=== PATIENT | female | born 1960 | race Hispanic/Latino ===

== ENCOUNTER 2020-01-24 13:17 | Outpatient (CLI) | payer BC ==
[2020-01-24] MEDS ORDERED: LIDOCAINE (4%) 40 MG/ML TOPICAL SOLN 50 ML BOTTLE TP ONE (13:40)
== END 2020-01-24 13:18 | disposition home or self-care (01) ==
LOC: WOUND 13:17
PROVIDERS: ATTEND Surgery
DX: I87.312 Chronic venous hypertension (idiopathic) with ulcer of left lower extremity (principal); L97.822 Non-pressure chronic ulcer of other part of left lower leg with fat layer exposed; J45.909 Unspecified asthma, uncomplicated; K21.9 Gastro-esophageal reflux disease without esophagitis; G62.9 Polyneuropathy, unspecified; F32.9 Major depressive disorder, single episode, unspecified; F41.9 Anxiety disorder, unspecified
CPT/HCPCS: 11042; G0463; 29581; 99204

== ENCOUNTER 2020-01-28 13:54 | Outpatient (CLI) | payer BC | END 2020-01-28 13:55 | disposition home or self-care (01) | LOC: WOUND 13:54 | PROVIDERS: ATTEND Surgery | DX: I87.312 Chronic venous hypertension (idiopathic) with ulcer of left lower extremity (principal); L97.822 Non-pressure chronic ulcer of other part of left lower leg with fat layer exposed; J45.909 Unspecified asthma, uncomplicated; K21.9 Gastro-esophageal reflux disease without esophagitis; G62.9 Polyneuropathy, unspecified; F32.9 Major depressive disorder, single episode, unspecified; F41.9 Anxiety disorder, unspecified | CPT/HCPCS: 29581 ==

== ENCOUNTER 2020-02-05 13:38 | Outpatient (CLI) | payer BC | END 2020-02-05 13:39 | disposition home or self-care (01) | LOC: WOUND 13:38 | PROVIDERS: ATTEND Surgery | DX: I87.312 Chronic venous hypertension (idiopathic) with ulcer of left lower extremity (principal); L97.822 Non-pressure chronic ulcer of other part of left lower leg with fat layer exposed; J45.909 Unspecified asthma, uncomplicated; Z98.51 Tubal ligation status; Z96.653 Presence of artificial knee joint, bilateral | CPT/HCPCS: 29581 ==

== ENCOUNTER 2020-02-07 13:25 | Outpatient (CLI) | payer BC ==
[2020-02-07] MEDS ORDERED: LIDOCAINE (4%) 40 MG/ML TOPICAL SOLN 50 ML BOTTLE TP SCH (14:00)
== END 2020-02-07 13:26 | disposition home or self-care (01) ==
LOC: WOUND 13:25
PROVIDERS: ATTEND Surgery
DX: I87.312 Chronic venous hypertension (idiopathic) with ulcer of left lower extremity (principal); L97.822 Non-pressure chronic ulcer of other part of left lower leg with fat layer exposed; J45.909 Unspecified asthma, uncomplicated; Z96.653 Presence of artificial knee joint, bilateral; Z98.51 Tubal ligation status; Z98.84 Bariatric surgery status
CPT/HCPCS: 29581

== ENCOUNTER 2020-02-12 09:00 | Outpatient (CLI) | payer BC | END 2020-02-12 09:01 | disposition home or self-care (01) | LOC: WOUND 09:00 | PROVIDERS: ATTEND Surgery | DX: I87.312 Chronic venous hypertension (idiopathic) with ulcer of left lower extremity (principal); L97.822 Non-pressure chronic ulcer of other part of left lower leg with fat layer exposed; J45.909 Unspecified asthma, uncomplicated; Z96.653 Presence of artificial knee joint, bilateral; Z98.51 Tubal ligation status; Z98.84 Bariatric surgery status | CPT/HCPCS: 29581 ==

== ENCOUNTER 2020-02-14 13:50 | Outpatient (CLI) | payer BC ==
[2020-02-14] MEDS ORDERED: LIDOCAINE (4%) 40 MG/ML TOPICAL SOLN 50 ML BOTTLE TP ONE (14:00)
== END 2020-02-14 13:51 | disposition home or self-care (01) ==
LOC: WOUND 13:50
PROVIDERS: ATTEND Surgery
DX: I87.312 Chronic venous hypertension (idiopathic) with ulcer of left lower extremity (principal); L97.822 Non-pressure chronic ulcer of other part of left lower leg with fat layer exposed; J45.909 Unspecified asthma, uncomplicated; Z96.653 Presence of artificial knee joint, bilateral; Z98.51 Tubal ligation status; Z98.84 Bariatric surgery status
CPT/HCPCS: 29581

== ENCOUNTER → 2020-02-22 | Outpatient (CLI) | payer BC | END | disposition home or self-care (01) | LOC: WOUND 11:00 | PROVIDERS: ATTEND Surgery | DX: I87.312 Chronic venous hypertension (idiopathic) with ulcer of left lower extremity (principal); L97.821 Non-pressure chronic ulcer of other part of left lower leg limited to breakdown of skin; J45.909 Unspecified asthma, uncomplicated; Z96.653 Presence of artificial knee joint, bilateral; Z98.51 Tubal ligation status; Z98.84 Bariatric surgery status | CPT/HCPCS: 29581 ==

== ENCOUNTER 2020-02-26 13:46 | Outpatient (CLI) | payer BC | END 2020-02-26 13:47 | disposition home or self-care (01) | LOC: WOUND 13:46 | PROVIDERS: ATTEND Surgery | DX: I87.312 Chronic venous hypertension (idiopathic) with ulcer of left lower extremity (principal); L97.821 Non-pressure chronic ulcer of other part of left lower leg limited to breakdown of skin; J45.909 Unspecified asthma, uncomplicated; Z96.653 Presence of artificial knee joint, bilateral; Z98.51 Tubal ligation status; Z98.84 Bariatric surgery status | CPT/HCPCS: 29581 ==

== ENCOUNTER 2020-02-28 08:21 | Outpatient (CLI) | payer BC ==
[2020-02-28] MEDS ORDERED: LIDOCAINE (4%) 40 MG/ML TOPICAL SOLN 50 ML BOTTLE TP ONE (08:43)
== END 2020-02-28 08:22 | disposition home or self-care (01) ==
LOC: WOUND 08:21
PROVIDERS: ATTEND Surgery
DX: I87.312 Chronic venous hypertension (idiopathic) with ulcer of left lower extremity (principal); L97.821 Non-pressure chronic ulcer of other part of left lower leg limited to breakdown of skin; J45.909 Unspecified asthma, uncomplicated; Z96.653 Presence of artificial knee joint, bilateral; Z98.51 Tubal ligation status; Z98.84 Bariatric surgery status
CPT/HCPCS: 29581

== ENCOUNTER 2020-03-03 13:09 | Outpatient (CLI) | payer BC | END 2020-03-03 13:10 | disposition home or self-care (01) | LOC: WOUND 13:09 | PROVIDERS: ATTEND Surgery | DX: I87.312 Chronic venous hypertension (idiopathic) with ulcer of left lower extremity (principal); L97.821 Non-pressure chronic ulcer of other part of left lower leg limited to breakdown of skin; J45.909 Unspecified asthma, uncomplicated; Z96.653 Presence of artificial knee joint, bilateral; Z98.51 Tubal ligation status; Z98.84 Bariatric surgery status | CPT/HCPCS: 29581 ==

== ENCOUNTER 2020-03-06 09:13 | Outpatient (CLI) | payer BC ==
[2020-03-06] MEDS ORDERED: LIDOCAINE (4%) 40 MG/ML TOPICAL SOLN 50 ML BOTTLE TP ONE (09:15)
[2020-03-06] MEDS ORDERED: VITAMIN A & D OINT 56.7 GM TP SCH (10:00)
== END 2020-03-06 09:14 | disposition home or self-care (01) ==
LOC: WOUND 09:13
PROVIDERS: ATTEND Surgery
DX: I87.312 Chronic venous hypertension (idiopathic) with ulcer of left lower extremity (principal); L97.821 Non-pressure chronic ulcer of other part of left lower leg limited to breakdown of skin; J45.909 Unspecified asthma, uncomplicated; Z96.653 Presence of artificial knee joint, bilateral; Z98.51 Tubal ligation status; Z98.84 Bariatric surgery status
CPT/HCPCS: 29581; A6250

== ENCOUNTER 2020-03-10 13:29 | Outpatient (CLI) | payer BC | END 2020-03-10 13:30 | disposition home or self-care (01) | LOC: WOUND 13:29 | PROVIDERS: ATTEND Surgery | DX: I87.312 Chronic venous hypertension (idiopathic) with ulcer of left lower extremity (principal); L97.821 Non-pressure chronic ulcer of other part of left lower leg limited to breakdown of skin; J45.909 Unspecified asthma, uncomplicated; Z96.653 Presence of artificial knee joint, bilateral; Z98.51 Tubal ligation status; Z98.84 Bariatric surgery status | CPT/HCPCS: 29581 ==

== ENCOUNTER 2020-06-04 13:10 | Outpatient (CLI) | payer BC ==
[2020-06-04] MEDS ORDERED: LIDOCAINE (4%) 40 MG/ML TOPICAL SOLN 50 ML BOTTLE TP ONE (13:44)
== END 2020-06-04 13:11 | disposition home or self-care (01) ==
LOC: WOUND 13:10
PROVIDERS: ATTEND Surgery
DX: I87.312 Chronic venous hypertension (idiopathic) with ulcer of left lower extremity (principal); L97.822 Non-pressure chronic ulcer of other part of left lower leg with fat layer exposed; J45.909 Unspecified asthma, uncomplicated; Z96.653 Presence of artificial knee joint, bilateral; Z98.51 Tubal ligation status; Z98.84 Bariatric surgery status

== ENCOUNTER 2020-06-18 13:21 | Outpatient (CLI) | payer BC ==
[2020-06-18] MEDS ORDERED: LIDOCAINE (4%) 40 MG/ML TOPICAL SOLN 50 ML BOTTLE TP ONE (14:25)
== END 2020-06-18 13:22 | disposition home or self-care (01) ==
LOC: WOUND 13:21
PROVIDERS: ATTEND Surgery
DX: I87.312 Chronic venous hypertension (idiopathic) with ulcer of left lower extremity (principal); L97.822 Non-pressure chronic ulcer of other part of left lower leg with fat layer exposed; J45.909 Unspecified asthma, uncomplicated; Z96.653 Presence of artificial knee joint, bilateral; Z98.51 Tubal ligation status; Z98.84 Bariatric surgery status

== ENCOUNTER 2021-03-04 13:13 | Outpatient (CLI) | payer BC ==
[2021-03-04] MEDS ORDERED: LIDOCAINE (4%) 40 MG/ML TOPICAL SOLN 50 ML BOTTLE TP ONE (14:05)
== END 2021-03-04 13:14 | disposition home or self-care (01) ==
LOC: WOUND 13:13
PROVIDERS: ATTEND Surgery
DX: L97.821 Non-pressure chronic ulcer of other part of left lower leg limited to breakdown of skin (principal); J45.909 Unspecified asthma, uncomplicated; I10 Essential (primary) hypertension; E66.9 Obesity, unspecified; Z96.653 Presence of artificial knee joint, bilateral; Z98.51 Tubal ligation status; Z68.43 Body mass index [BMI] 50.0-59.9, adult; Z98.84 Bariatric surgery status
CPT/HCPCS: 99215; G0463

== ENCOUNTER 2021-03-18 13:30 | Outpatient (CLI) | payer BC ==
[2021-03-18] MEDS ORDERED: LIDOCAINE (4%) 40 MG/ML TOPICAL SOLN 50 ML BOTTLE TP ONE (13:48)
== END 2021-03-18 13:31 | disposition home or self-care (01) ==
LOC: WOUND 13:30
PROVIDERS: ATTEND Surgery
DX: L97.821 Non-pressure chronic ulcer of other part of left lower leg limited to breakdown of skin (principal); J45.909 Unspecified asthma, uncomplicated; I10 Essential (primary) hypertension; E66.9 Obesity, unspecified; Z96.653 Presence of artificial knee joint, bilateral; Z98.51 Tubal ligation status; Z68.43 Body mass index [BMI] 50.0-59.9, adult; Z98.84 Bariatric surgery status
CPT/HCPCS: 99213; G0463